=== PATIENT | female | born 1995 | race Caucasian/White ===

== ENCOUNTER 2017-08-16 10:06 | Emergency (ER) | payer MEDICAID ==
[~2017-08-16] VITALS: Ht 165.1 cm; Wt 95.7 kg
[2017-08-16 10:23] VITALS: BP 123/78; Ht 165.1 cm; Wt 95.7 kg
== END 2017-08-16 11:13 | disposition home or self-care (01) ==
LOC: ED 10:06
DX: O23.41 Unspecified infection of urinary tract in pregnancy, first trimester (principal); O99.331 Smoking (tobacco) complicating pregnancy, first trimester; F12.90 Cannabis use, unspecified, uncomplicated
CPT/HCPCS: 99406

== ENCOUNTER 2017-09-01 15:50 | Emergency (ER) | payer MEDICAID ==
[~2017-09-01] VITALS: Ht 165.1 cm; Wt 92.5 kg
[2017-09-01 16:05] VITALS: Ht 165.1 cm; Wt 92.5 kg
[2017-09-01 18:24] LABS: CALCIUM 9.1 mg/dL (8.5-10.1); CARBON DIOXIDE 22.2 mmol/L (21-32); CHLORIDE SERUM 102 mmol/L (98-107); CREATININE SERUM 0.6 mg/dL (0.6-1.0); GFR1 > 60 mL/min; GLUCOSE SERUM 92 mg/dL (74-106); POTASSIUM SERUM 3.6 mmol/L (3.5-5.1); SODIUM SERUM 136 mmol/L (136-145)
[2017-09-01 18:29] LABS: ALBUMIN 3.9 g/dL (3.4-5.0); ALKALINE PHOSPHATASE 89 U/L (46-116); ALT/SGPT 115 U/L (14-59); AST/SGOT 23 U/L (15-37); LIPASE 132 IU/L (73-393); TOTAL PROTEIN, SERUM 8.3 g/dL (6.4-8.2)
[2017-09-01 18:31] LABS: BASOPHIL % 0.4 % (0-2); PLATELET COUNT 338 x10^3mcL (130-400)
[2017-09-01 18:34] LABS: RED CELL DISTRIBUTION WIDTH 14.8 % (11.5-14.5)
[2017-09-01 19:20] LABS: UA SPECIFIC GRAVITY >=1.030 (1.005-1.035); microscopic required? YES; urine erythrocyte NEGATIVE (NEGATIVE)
[2017-09-01 21:02] VITALS: BP 114/83
== END 2017-09-01 21:02 | disposition home or self-care (01) ==
LOC: ED 15:50
PROVIDERS: Emergency Medicine
DX: O23.41 Unspecified infection of urinary tract in pregnancy, first trimester (principal); O21.9 Vomiting of pregnancy, unspecified; Z3A.01 Less than 8 weeks gestation of pregnancy
CPT/HCPCS: J0696; J1200; J2765; J3490

== ENCOUNTER 2019-07-19 21:22 | Emergency (ER) | payer OTHER ==
[~2019-07-19] VITALS: Ht 165.1 cm; Wt 106.6 kg
[2019-07-19 21:35] VITALS: Ht 165.1 cm; Wt 106.6 kg
[2019-07-19 22:20] LABS: BASOPHIL % 0.3 % (0-2); PLATELET COUNT 399 x10^3mcL (130-400)
[2019-07-19 22:31] LABS: RED CELL DISTRIBUTION WIDTH 15.1 % (11.5-14.5)
[2019-07-19 22:59] LABS: CALCIUM 8.8 mg/dL (8.5-10.1); CARBON DIOXIDE 29.1 mmol/L (21-32); CHLORIDE SERUM 104 mmol/L (98-107); CREATININE SERUM 0.7 mg/dL (0.6-1.0); GFR1 > 60 mL/min; GLUCOSE SERUM 95 mg/dL (74-106); POTASSIUM SERUM 3.5 mmol/L (3.5-5.1); SODIUM SERUM 140 mmol/L (136-145)
[2019-07-19 23:08] LABS: ALBUMIN 3.8 g/dL (3.4-5.0); ALKALINE PHOSPHATASE 75 U/L (46-116); ALT/SGPT 26 U/L (14-59); AST/SGOT 12 U/L (15-37); LIPASE 150 IU/L (73-393); TOTAL PROTEIN, SERUM 7.9 g/dL (6.4-8.2)
[2019-07-19 23:56] VITALS: BP 108/68
== END 2019-07-19 23:56 | disposition home or self-care (01) ==
LOC: ED 21:22
PROVIDERS: Emergency Medicine
DX: K80.20 Calculus of gallbladder without cholecystitis without obstruction (principal)
CPT/HCPCS: J1885; J2405; J7030; Q0092